=== PATIENT | female | born 1940 | race Caucasian/White ===

== ENCOUNTER → 2017-12-22 09:06 | Outpatient (CLI) | payer MEDICARE, SELFPAY ==
[2017-12-22 10:44] LABS: Hemoglobin A1C% w Est Avg Glu 5.6 % (4.0-6.0)
[2017-12-22 11:27] LABS: Alanine Aminotransferase 23 IU/L (9-52); Albumin 4.2 g/dL (3.5-5.0); Albumin Globulin Ratio 1.2 (1.0-2.8); Alkaline Phosphatase 85 U/L (38-126); Aspartate Aminotransferase 22 IU/L (14-36); BUN Creatinine Ratio 28.8 (6-22); Bilirubin Total 0.6 mg/dL (0.2-1.3); Blood Urea Nitrogen 23 mg/dL (7-17); Carbon Dioxide 30 mmol/L (22-32); Chloride 104 mmol/L (98-107); Cholesterol 197 mg/dL (140-199); Estimated Glomerular Filt Rate > 60.0 mL/min (>60); Globulin 3.4 g/dL (1.7-4.1); Glucose 131 mg/dL (80-110); HDL Cholesterol 38 mg/dL (40-60); HEMOLYSIS < 15 (0-50); LDL Cholesterol Calculated 119 mg/dL (<100); Potassium 4.6 mmol/L (3.4-5.1); Sodium 143 mmol/L (137-145); Total Protein 7.6 g/dL (6.3-8.2); Triglycerides 200 mg/dL (35-150)
== END ==
PROVIDERS: Visit Provider Internal Medicine
DX: M85.852 Other specified disorders of bone density and structure, left thigh (principal); Z78.0 Asymptomatic menopausal state; Z85.3 Personal history of malignant neoplasm of breast
CPT/HCPCS: 36415; 77080; 80053; 80061; 83036

== ENCOUNTER → 2017-12-31 09:12 | Outpatient (CLI) | payer MEDICARE, SELFPAY ==
[2017-12-31 12:30] LABS: Cholesterol 194 mg/dL (140-199); HDL Cholesterol 65 mg/dL (40-60); LDL Cholesterol Calculated 118 mg/dL (<100); Triglycerides 56 mg/dL (35-150)
== END ==
PROVIDERS: Visit Provider Internal Medicine
DX: E78.5 Hyperlipidemia, unspecified (principal)
CPT/HCPCS: 36415; 80061

== ENCOUNTER → 2018-02-16 08:45 | Outpatient (CLI) | payer MEDICARE, SELFPAY ==
[2018-02-16 09:45] LABS: Cholesterol 145 mg/dL (140-199); HDL Cholesterol 64 mg/dL (40-60); LDL Cholesterol Calculated 70 mg/dL (<100); Triglycerides 57 mg/dL (35-150)
== END ==
PROVIDERS: PCP Family Medicine; Visit Provider Internal Medicine
DX: E78.9 Disorder of lipoprotein metabolism, unspecified (principal)
CPT/HCPCS: 36415; 80061

== ENCOUNTER → 2018-03-04 11:28 | Outpatient (CLI) | payer MEDICARE, SELFPAY ==
[2018-03-09 15:30] LABS: Fecal Immunochemical Test NOT DETECTED
== END ==
PROVIDERS: PCP Family Medicine; Visit Provider Family Medicine
DX: Z12.11 Encounter for screening for malignant neoplasm of colon (principal)
CPT/HCPCS: 82274

== ENCOUNTER 2018-03-29 09:03 | Emergency (ER) | payer MEDICARE, SELFPAY ==
[2018-03-29 09:18] VITALS: BP 148/57; PULSE 76; RESP 15; TEMP 36.6; O2SAT 96; BMI 22.6
--- NOTE | 2018-03-29 09:26 | DI.RAD.S_ITS ---
PROCEDURE: XR CHEST 1V INDICATIONS: chest pain TECHNIQUE: One view of the chest was acquired. COMPARISON: None. FINDINGS: Surgical changes and devices: Right axillary surgical clips are present. Lungs and pleura: No pleural effusions or pneumothorax. Lungs are clear. Mediastinum: Mediastinal contours appear normal. Heart size is normal. Bones and chest wall: No suspicious bony lesions. Overlying soft tissues appear unremarkable. IMPRESSION: No acute process. Dictated by: Muna Alonso M.D. on 03/29/2018 at 9:38 Approved by: Muna Alonso M.D. on 03/29/2018 at 9:38
[2018-03-29 09:51] LABS: Add Manual Diff / Slide Review NO; Basophils Percent Auto 1.3 % (0-2); Eosinophils Percent Auto 4.8 % (2-4); Hematocrit 37.8 % (36-46); Hemoglobin 13.2 g/dL (12.0-16.0); Lymphocytes Percent Auto 17.4 % (25-40); Mean Corpuscular Hemoglobin 32.3 PG (26-34); Mean Corpuscular Volume 92.2 fL (80-100); Monocytes Percent Auto 8.3 % (3-14); Neutrophils Absolute Auto 4100 /uL (3000-5900); Neutrophils Percent Auto 68.2 % (50-75); Platelet Count 178 X10^3/uL (150-400); Red Cell Distribution Width 12.4 % (11.6-14.8)
[2018-03-29 10:00] VITALS: BP 123/47; PULSE 53; RESP 12; O2SAT 98
[2018-03-29 10:02] LABS: INR 1.1 (0.9-1.3); Prothrombin Time 11.4 SECONDS (10.1-12.7)
[2018-03-29 10:05] LABS: PTT Partial Thromboplastin Tim 25 SECONDS (26.4-36.2)
[2018-03-29 10:12] LABS: Alanine Aminotransferase 24 IU/L (9-52); Albumin Globulin Ratio 1.5 (1.0-2.8); Alkaline Phosphatase 42 U/L (38-126); Aspartate Aminotransferase 23 IU/L (14-36); BUN Creatinine Ratio 33.8 (6-22); Bilirubin Total 0.6 mg/dL (0.2-1.3); Blood Urea Nitrogen 27 mg/dL (7-17); Calcium 9.1 mg/dL (8.4-10.2); Carbon Dioxide 26 mmol/L (22-32); Chloride 105 mmol/L (98-107); Creatine Kinase 141 U/L (30-135); Estimated Glomerular Filt Rate > 60.0 mL/min (>60); Globulin 2.6 g/dL (1.7-4.1); Glucose 111 mg/dL (80-110); HEMOLYSIS < 15 (0-50); Lipase 64 U/L (23-300); Potassium 4.1 mmol/L (3.4-5.1); Sodium 142 mmol/L (137-145); Total Protein 6.6 g/dL (6.3-8.2)
--- NOTE | 2018-03-29 10:24 | ED_ITS ---
HPI - Syncope General Chief Complaint: Syncope Stated Complaint: cramp on rt inner thigh,high bp,passed out Time Seen by Provider: 03/29/18 09:26 Source: patient Mode of arrival: ambulatory Limitations: no limitations History of Present Illness HPI narrative: The patient is a 77-year-old very active female who presents after syncopal episode yesterday. She says that she went on a hike for about 5 miles yesterday around [facility] with the dog. They only brought water for the dog. She returned back to the house sitting in the recliner had some right leg pain Related Data Previous Rx's Medication Instructions Recorded mirtazapine 15 mg tablet 15 mg PO HS #90 tab 10/22/17 rosuvastatin 10 mg tablet 10 mg PO DAILY #60 tab 03/03/18 Allergies Allergy/AdvReac Type Severity Reaction Status Date / Time diphenoxylate [From Lomotil] AdvReac Mild VOMITING, Verified 03/29/18 09:23 FAINTING hydrocodone AdvReac Mild VOMITING Verified 03/29/18 09:23 meperidine AdvReac Mild VOMITING Verified 03/29/18 09:23 Review of Systems Review of Systems All systems reviewed & are unremarkable except as noted in HPI and below Constitutional Denies chills, Denies fever(s), Denies lethargy and Denies weakness Eyes Denies change in vision, Denies eye discharge, Denies irritation and Denies loss of vision Cardiovascular Reports as per HPI, Denies chest pain, Reports syncope, Denies dyspnea and Denies dyspnea on exertion Respiratory Denies cough, Denies dyspnea, Denies dyspnea on exertion and Denies wheezing Gastrointestinal Gastrointestinal: Denies abdominal pain, Denies change in bowel habits, Denies diarrhea, Denies nausea and Denies vomiting Genitourinary Denies hematuria, Denies flank pain, Denies urinary incontinence and Denies urinary urgency Musculoskeletal Denies back pain, Denies muscle weakness, Denies numbness and Denies tingling Integumentary/Breasts Denies pruritus, Denies erythema, Denies rash and Denies wounds Neurologic Reports syncope, Denies loss of vision, Denies numbness, Denies tingling and Denies weakness Allergic/Immunologic Denies wheezing [facility] Medical History Hyperlipidemia (Chronic) Asthma (Chronic) Compression fracture (Chronic) Hayfever (Chronic ~1989) Osteoarthritis of hands, bilateral (Chronic ~2011) Osteopenia (Chronic) Breast cancer, stage 1 (Resolved 1994) Cataract (Resolved) Chicken pox (Resolved ~1946) Fibrocystic breast disease (Resolved) Fibroids (Resolved 1970) Left tibial fracture (Resolved 1990) Measles (Resolved ~1947) Mumps (Resolved ~1948) Positive PPD (Resolved 1959) Surgical History Anesthesia (Resolved) History of cataract surgery (Resolved 2012) History of nasal polypectomy (Resolved) History of orthopedic surgery (Resolved 1990) History of sinus surgery (Resolved ~1969) S/P surgery on nasal septum (Resolved ~1969) Status post breast lumpectomy (Resolved 12/03/94) Status post vaginal hysterectomy (Resolved 1971) Family History Brother Age: 75 Diabetes mellitus Hypertension Father Heart disease High cholesterol Grandfather Cancer Lung cancer Grandmother Stroke Mother Cancer Lung cancer Grandmother Cancer Liver cancer Sister Age: 72 Hypertension Grandfather No problems noted. Other CAD (coronary artery disease) Social History Smoking Status: Never smoker Exam Initial Vital Signs Initial Vital Signs: Vital Signs Temperature 97.9 F 03/29/18 09:18 Pulse Rate 76 03/29/18 09:18 Respiratory Rate 15 03/29/18 09:18 Blood Pressure 148/57 H 03/29/18 09:18 Pulse Oximetry 96 03/29/18 09:18 GENERAL: Appears younger than stated age all alert cooperative HEENT: Head atraumatic,EOMI, pupils reactive, face symmetric, moist mucous membranes CARDIOVASCULAR: Regular rate and rhythm without murmurs, rubs or gallops. RESPIRATORY: Breath sounds equal bilaterally, no wheezes rales or rhonchi. ABDOMEN: Soft, nontender. Normoactive bowel sounds all 4 quadrants. No guarding or rebound.s EXTREMITIES: Normal range of motion, no clubbing or edema. Neurovascularly intact NEUROLOGICAL: Alert and oriented x4.Normal gait and speech. Cranial nerves II through XII grossly intact. Good [id number], good [id number], strength equal bilaterally, no dysarthria or aphasia, sensation in tact to soft touch bilaterally, no visual changes, no facial droop SKIN: Warm, dry, no laceration, no petechiae, no rashes or lesions. Scores NIH Stroke Scale Level of Conciousness: Alert, keenly responsive Ask month/age: Answers both questions correctly. Open/close eyes, close hand: Performs both tasks correctly Best gaze horizontal: Normal Visual jane: No visual loss Facial palsy: Normal symetrical movement Left arm drift: No drift for full 10 sec Right arm drift: No drift for full 10 sec Left leg drift: No drift for full 10 sec Right leg drift: No drift for full 10 sec Limb ataxia: Absent Sensory on face/arms/legs: Normal, no sensory loss Best language: No aphasia, normal Dysarthria: Normal Extinction or inattention: No abnormality Total NIH Stroke scale score: 0 Course Orders Ordered: ED Orders 03/29/18 09:26 XR chest 1V Stat EKG-12 Lead Stat 03/29/18 09:45 Complete Blood Count AUTO DIFF Stat Comprehensive Metabolic Panel Stat Lipase Stat Partial Thromboplastin Time Stat Prothrombin Time INR Stat Troponin & CK Cardiac Panel Stat Vital Signs - 8 hr 03/29/18 09:18 03/29/18 10:00 Temperature 97.9 F Pulse Rate 76 53 L Respiratory Rate 15 12 Blood Pressure 148/57 H Blood Pressure [Left Arm] 123/47 L Pulse Oximetry 96 98 MDM - Syncope Lab Data Attestation: I reviewed the patient's lab results. Result diagrams: 03/29/18 09:45 03/29/18 09:45 Lab Results 03/29/18 03/29/18 03/29/18 Range/Units 09:45 09:45 09:45 WBC 6.0 (4.5-11.0) X10^3/uL RBC 4.10 (4.0-5.2) X10^6/uL Hgb 13.2 (12.0-16.0) g/dL Hct 37.8 (36-46) % MCV 92.2 (80-100) fL MCH 32.3 (26-34) PG MCHC 35.0 (30-36) % RDW 12.4 (11.6-14.8) % Plt Count 178 (150-400) X10^3/uL Neut % (Auto) 68.2 (50-75) % Lymph % (Auto) 17.4 L (25-40) % [place] % (Auto) 8.3 (3-14) % Eos % (Auto) 4.8 H (2-4) % Baso % (Auto) 1.3 (0-2) % Neut # (Auto) 4100 (2309-6865) /uL PT 11.4 (10.1-12.7) SECONDS INR 1.1 (0.9-1.3) APTT 25 L (26.4-36.2) SECONDS Sodium 142 (137-145) mmol/L Potassium 4.1 (3.4-5.1) mmol/L Chloride 105 (98-107) mmol/L Carbon Dioxide 26 (22-32) mmol/L BUN 27 H (7-17) mg/dL Creatinine 0.80 (0.52-1.04) mg/dL Estimated GFR > 60.0 (>60) mL/min BUN/Creatinine Ratio 33.8 H (6-22) Glucose 111 H (80-110) mg/dL Calcium 9.1 (8.4-10.2) mg/dL Total Bilirubin 0.6 (0.2-1.3) mg/dL AST 23 (14-36) IU/L ALT 24 (9-52) IU/L Alkaline Phosphatase 42 (38-126) U/L Total Creatine Kinase 141 H (30-135) U/L CK-MB (CK-2) 1.86 (<2.37) ng/mL CK-MB (CK-2) Rel Index 1.3 L (1.5-5.0) % Troponin I < 0.012 (0.01-0.034) ng/mL Total Protein 6.6 (6.3-8.2) g/dL Albumin 4.0 (3.5-5.0) g/dL Globulin 2.6 (1.7-4.1) g/dL Albumin/Globulin Ratio 1.5 (1.0-2.8) Lipase 64 (23-300) U/L Urine RBC (0-5/HPF) Urine WBC (0-5/HPF) Ur Squamous Epith Cells Urine Bacteria (None) Ur Culture Indicated? Micro UA Comment 03/29/18 Range/Units Unknown WBC (4.5-11.0) X10^3/uL RBC (4.0-5.2) X10^6/uL Hgb (12.0-16.0) g/dL Hct (36-46) % MCV (80-100) fL MCH (26-34) PG MCHC (30-36) % RDW (11.6-14.8) % Plt Count (150-400) X10^3/uL Neut % (Auto) (50-75) % Lymph % (Auto) (25-40) % [place] % (Auto) (3-14) % Eos % (Auto) (2-4) % Baso % (Auto) (0-2) % Neut # (Auto) (6853-4660) /uL PT (10.1-12.7) SECONDS INR (0.9-1.3) APTT (26.4-36.2) SECONDS Sodium (137-145) mmol/L Potassium (3.4-5.1) mmol/L Chloride (98-107) mmol/L Carbon Dioxide (22-32) mmol/L BUN (7-17) mg/dL Creatinine (0.52-1.04) mg/dL Estimated GFR (>60) mL/min BUN/Creatinine Ratio (6-22) Glucose (80-110) mg/dL Calcium (8.4-10.2) mg/dL Total Bilirubin (0.2-1.3) mg/dL AST (14-36) IU/L ALT (9-52) IU/L Alkaline Phosphatase (38-126) U/L Total Creatine Kinase (30-135) U/L CK-MB (CK-2) (<2.37) ng/mL CK-MB (CK-2) Rel Index (1.5-5.0) % Troponin I (0.01-0.034) ng/mL Total Protein (6.3-8.2) g/dL Albumin (3.5-5.0) g/dL Globulin (1.7-4.1) g/dL Albumin/Globulin Ratio (1.0-2.8) Lipase (23-300) U/L Urine RBC None seen (0-5/HPF) Urine WBC None seen (0-5/HPF) Ur Squamous Epith Cells 5-10 /hpf H Urine Bacteria None seen (None) Ur Culture Indicated? Cult not indicated Micro UA Comment Not Reportable Urine Dip Bedside Urine Glucose Negative Bedside Urine Bilirubin - Negative Bedside Urine Ketone - Negative Urine Specific [place] 1.020 Bedside Urine Occult Blood +/- Bedside Urine pH 6.0 Bedside Urine Protein - Negative Bedside Urine Urobilinogen - Negative Bedside Urine Nitrite - Negative Bedside Urine Leukocytes - Negative Esterase Imaging Data Chest x-ray: Radiologist's impression: PROCEDURE: XR CHEST 1V INDICATIONS: chest pain TECHNIQUE: One view of the chest was acquired. COMPARISON: None. FINDINGS: Surgical changes and devices: Right axillary surgical clips are present. Lungs and pleura: No pleural effusions or pneumothorax. Lungs are clear. Mediastinum: Mediastinal contours appear normal. Heart size is normal. Bones and chest wall: No suspicious bony lesions. Overlying soft tissues appear unremarkable. IMPRESSION: No acute process. Dictated by: Muna Alonso M.D. on 03/29/2018 at 9:38 ECG Data Attestation: I personally reviewed and interpreted this ECG as follows: Prior ECG tracings: not available for review Interpretation: Normal sinus rhythm rate [address] changes no T-wave inversions, 1st degree AV block NV interval 216 QRS 97 QTC 391 MDM Narrative Medical decision making narrative: Patient overall is feeling better she is tolerating oral fluids. She has not had a recurrent syncopal episode pleural this is likely vasovagal Discharge Plan Departure Patient Disposition: Home Clinical Impression: Syncope Discharge Date/Time: 03/29/18 11:30 Interventions: ED Discharge Assessment Last Done: 03/29/18 11:29 Instructions: Fainting Activity Restrictions/Additional Instructions: *You have been diagnosed with fainting *What to do: Hydrate more with water avoid caffeinated drinks such as coffee *Continue to take medications as directed *Follow up with your primary care provider in 2-3 days *Return to ER if you should have recurrent fainting episode, chest pain, weakness or any new, worsening or concerning symptoms Prescriptions: No Action mirtazapine [Remeron] 15 mg tablet 15 mg PO HS Qty: 90 RF: 3 rosuvastatin 10 mg tablet 10 mg PO DAILY Qty: 60 RF: 3 Referrals: Veda Amaral MD [Primary Care Provider] -
[2018-03-29 10:28] LABS: CKMB % Relative Index 1.3 % (1.5-5.0); Creatine Kinase MB 1.86 ng/mL (<2.37)
[2018-03-29 10:31] LABS: Troponin I < 0.012 ng/mL (0.01-0.034)
[2018-03-29 11:00] VITALS: BP 128/75; PULSE 60; RESP 12; O2SAT 98
[2018-03-29 11:30] LABS: Bacteria Urine None Seen; RBC Urine None Seen (0-5/HPF); WBC Urine None Seen (0-5/HPF)
[2018-03-29 11:31] LABS: Culture Indicated Urine Cult Not Indicated; Squamous Epithelial Cell Urine 5-10 /HPF
== END 2018-03-29 11:30 | disposition home or self-care (01) ==
PROVIDERS: Emergency Provider Emergency Medicine; PCP Family Medicine
DX: R55 Syncope and collapse (principal)
CPT/HCPCS: 36591; 71045; 80053; 81003; 81015; 82550; 82553; 83690; 84484; 85025; 85610; 85730; 93005; 99283; 99285

== ENCOUNTER → 2018-07-14 09:12 | Outpatient (CLI) | payer MEDICARE, SELFPAY ==
[2018-07-14 10:26] LABS: Cholesterol 196 mg/dL (140-199); HDL Cholesterol 63 mg/dL (40-60); LDL Cholesterol Calculated 121 mg/dL (<100); Triglycerides 62 mg/dL (35-150)
== END ==
PROVIDERS: PCP Family Medicine; Visit Provider Family Medicine
DX: E78.5 Hyperlipidemia, unspecified (principal)
CPT/HCPCS: 36415; 80061

== ENCOUNTER → 2018-08-16 10:50 | Outpatient (CLI) | payer MEDICARE, SELFPAY ==
--- NOTE | 2018-08-16 | DI.MG.S_ITS ---
BILATERAL DIGITAL SCREENING MAMMOGRAM 3D/2D WITH CAD: 08/16/2018 CLINICAL: Routine screening. Personal history of right breast cancer. Comparison is made to exams dated: 08/14/2017 mammogram, 08/13/2016 mammogram, and 08/03/2015 mammogram - [facility]. The tissue of both breasts is heterogeneously dense. This may lower the sensitivity of mammography. Current study was also evaluated with a Computer Aided Detection (CAD) system. There are benign post operative findings in the right breast. No significant masses, calcifications, or other findings are seen in either breast. There has been no significant interval change. IMPRESSION: There is no mammographic evidence of malignancy. A 1 year screening mammogram is recommended. This exam was interpreted at Station ID: [id number]. NOTE: For mammograms, a report in lay terms will be sent to the patient. Approximately 15% of breast malignancies will not be visualized mammographically. In the management of a palpable breast mass, a negative mammogram must not discourage biopsy of a clinically suspicious lesion. Electronically Signed By: Marty macedo/fabian:08/16/2018 12:25:40 copy to: GIACOMO CANO letter sent: Normal Exam ACR BI-RADS Category 2: Benign Finding(s) 3342F
== END ==
PROVIDERS: PCP Family Medicine; Visit Provider Family Medicine
DX: Z12.31 Encounter for screening mammogram for malignant neoplasm of breast (principal); Z85.3 Personal history of malignant neoplasm of breast
CPT/HCPCS: 77063; 77067

== ENCOUNTER → 2019-06-20 10:19 | Outpatient (CLI) | payer MEDICARE, SELFPAY ==
[2019-06-20 12:20] LABS: Hematocrit 41.6 % (36-46); Hemoglobin 14.2 g/dL (12.0-16.0); Mean Corpuscular HGB Conc 34.2 % (30-36); Mean Corpuscular Hemoglobin 31.7 PG (26-34); Mean Corpuscular Volume 92.6 fL (80-100); Platelet Count 186 X10^3/uL (150-400); Red Blood Cell Count 4.49 X10^6/uL (4.0-5.2); Red Cell Distribution Width 12.7 % (11.6-14.8)
[2019-06-20 13:23] LABS: TSH w/ Reflex to FT4 3.26 uIU/mL (0.47-4.68)
== END ==
PROVIDERS: PCP Family Medicine; Referring Provider Registered Nurse; Visit Provider Registered Nurse
DX: R53.83 Other fatigue (principal)
CPT/HCPCS: 36415; 84443; 85027

== ENCOUNTER → 2019-08-29 15:46 | Outpatient (CLI) | payer MEDICARE, SELFPAY ==
[2019-08-29 17:42] LABS: C-Reactive Protein Quant 6.8 mg/dL (<1.0)
[2019-08-29 17:43] LABS: Rheumatoid Factor < 8.6 IU/mL (<12.0)
[2019-08-29 18:26] LABS: Erythrocyte Sedimentation Rate 33 MM/HR (0-20)
[2019-08-31 23:47] LABS: CCP Antibodies IgG/IgA 8 units (0-19)
== END ==
PROVIDERS: PCP Family Medicine; Referring Provider Family Medicine; Visit Provider Family Medicine
DX: M79.10 Myalgia, unspecified site (principal); R21 Rash and other nonspecific skin eruption; R50.9 Fever, unspecified
CPT/HCPCS: 36415; 85651; 86140; 86200; 86430

== ENCOUNTER → 2019-09-09 16:25 | Outpatient (CLI) | payer MEDICARE, SELFPAY ==
[2019-09-09 17:37] LABS: Erythrocyte Sedimentation Rate 8 MM/HR (0-20)
[2019-09-09 18:13] LABS: C-Reactive Protein Quant < 0.5 mg/dL (<1.0)
== END ==
PROVIDERS: PCP Family Medicine; Referring Provider Family Medicine; Visit Provider Family Medicine
DX: Z51.81 Encounter for therapeutic drug level monitoring (principal); M25.50 Pain in unspecified joint; T38.0X5A Adverse effect of glucocorticoids and synthetic analogues, initial encounter
CPT/HCPCS: 36415; 85651; 86140

== ENCOUNTER → 2019-10-15 10:05 | Outpatient (CLI) | payer MEDICARE, SELFPAY ==
--- NOTE | 2019-10-15 10:06 | DI.MG.S_ITS ---
BILATERAL DIGITAL SCREENING MAMMOGRAM 3D/2D WITH CAD POST LUMPECTOMY: 10/15/2019 CLINICAL: Routine screening. Personal history of right breast cancer. Comparison is made to exams dated: 08/16/2018 mammogram, 08/14/2017 mammogram, and 08/13/2016 mammogram - [facility]. The tissue of both breasts is heterogeneously dense. This may lower the sensitivity of mammography. Current study was also evaluated with a Computer Aided Detection (CAD) system. There are benign post operative findings in the right breast. No significant masses, calcifications, or other findings are seen in either breast. There has been no significant interval change. IMPRESSION: There is no mammographic evidence of malignancy. A 1 year screening mammogram is recommended. This exam was interpreted at Station ID: [id number]. NOTE: For mammograms, a report in lay terms will be sent to the patient. Approximately 15% of breast malignancies will not be visualized mammographically. In the management of a palpable breast mass, a negative mammogram must not discourage biopsy of a clinically suspicious lesion. Electronically Signed By: Marty macedo/fabian:10/17/2019 08:42:36 letter sent: Normal Exam ACR BI-RADS Category 2: Benign Finding(s) 3342F
== END ==
PROVIDERS: PCP Family Medicine; Referring Provider Family Medicine; Visit Provider Family Medicine
DX: Z12.31 Encounter for screening mammogram for malignant neoplasm of breast (principal); Z85.3 Personal history of malignant neoplasm of breast
CPT/HCPCS: 77063; 77067

== ENCOUNTER → 2020-01-17 08:31 | Outpatient (CLI) | payer MEDICARE, SELFPAY | PROVIDERS: PCP Family Medicine; Visit Provider Physician Assistant | DX: R30.0 Dysuria (principal) | CPT/HCPCS: 87077; 87086; 87186 ==

== ENCOUNTER → 2020-10-22 10:45 | Outpatient (CLI) | payer MEDICARE, SELFPAY ==
--- NOTE | 2020-10-22 10:46 | DI.MG.S_ITS ---
BILATERAL DIGITAL SCREENING MAMMOGRAM 3D/2D WITH CAD: 10/22/2020 CLINICAL: Routine screening. Breast cancer. Comparison is made to exams dated: 10/15/2019 mammogram, 08/16/2018 mammogram, and 08/14/2017 mammogram - [facility]. The tissue of both breasts is heterogeneously dense. This may lower the sensitivity of mammography. Current study was also evaluated with a Computer Aided Detection (CAD) system. There are benign post operative findings in the right breast. No significant masses, calcifications, or other findings are seen in either breast. There has been no significant interval change. IMPRESSION: BENIGN There is no mammographic evidence of malignancy. A 1 year screening mammogram is recommended. This exam was interpreted at Station ID: [id number]. NOTE: For mammograms, a report in lay terms will be sent to the patient. Approximately 15% of breast malignancies will not be visualized mammographically. In the management of a palpable breast mass, a negative mammogram must not discourage biopsy of a clinically suspicious lesion. Electronically Signed By: Fred musa/fabian:10/22/2020 13:09:36 letter sent: Normal Exam ACR BI-RADS Category 2: Benign Finding(s) 3342F
== END ==
PROVIDERS: PCP Family Medicine; Referring Provider Internal Medicine Hematology & Oncology; Visit Provider Internal Medicine Hematology & Oncology
DX: Z12.31 Encounter for screening mammogram for malignant neoplasm of breast (principal); C50.919 Malignant neoplasm of unspecified site of unspecified female breast
CPT/HCPCS: 77063; 77067

== ENCOUNTER → 2020-11-07 09:43 | Outpatient (CLI) | payer MEDICARE, SELFPAY ==
[2020-11-07 10:44] LABS: Hemoglobin A1C% w Est Avg Glu 5.4 % (4.0-6.0)
[2020-11-07 11:12] LABS: Cholesterol 208 mg/dL (140-199); HDL Cholesterol 60 mg/dL (40-60); LDL Cholesterol Calculated 137 mg/dL (<100); Triglycerides 53 mg/dL (35-150)
[2020-11-07 12:03] LABS: Vitamin B12 215 pg/mL (239-931)
== END ==
PROVIDERS: PCP Family Medicine; Referring Provider Family Medicine; Visit Provider Family Medicine
DX: G62.9 Polyneuropathy, unspecified (principal); Z13.220 Encounter for screening for lipoid disorders
CPT/HCPCS: 36415; 80061; 82607; 83036

== ENCOUNTER → 2021-09-19 09:30 | Outpatient (CLI) | payer MEDICARE, SELFPAY ==
[2021-09-19 11:28] LABS: Alanine Aminotransferase 14 IU/L (<35); Albumin 4.1 g/dL (3.5-5.0); Albumin Globulin Ratio 1.4 (1.0-2.8); Alkaline Phosphatase 42 U/L (38-126); Aspartate Aminotransferase 25 IU/L (14-36); Bilirubin Total 0.5 mg/dL (0.2-1.3); Blood Urea Nitrogen 24 mg/dL (7-17); Calcium 9.1 mg/dL (8.4-10.2); Carbon Dioxide 30 mmol/L (22-32); Chloride 103 mmol/L (98-107); Cholesterol 202 mg/dL (140-199); Estimated Glomerular Filt Rate 59 mL/min (>60); Globulin 2.9 g/dL (1.7-4.1); Glucose 96 mg/dL (80-110); HDL Cholesterol 61 mg/dL (40-60); HEMOLYSIS < 15 (0-50); LDL Cholesterol Calculated 129 mg/dL (<100); Potassium 4.3 mmol/L (3.4-5.1); Sodium 138 mmol/L (137-145); Triglycerides 62 mg/dL (35-150)
[2021-09-19 18:15] LABS: Creatinine Urine Random 192.2 mg/dL
[2021-09-19 18:19] LABS: Microalbumi Creatinin Ratio Ur 19.7 ug/mg CR (<30); Microalbumin Urine Random 3.8 mg/dL (0-1.6)
== END ==
PROVIDERS: PCP Family Medicine; Referring Provider Family Medicine; Visit Provider Family Medicine
DX: I10 Essential (primary) hypertension (principal)
CPT/HCPCS: 36415; 80053; 80061; 82043; 82570

== ENCOUNTER → 2021-10-28 14:35 | Outpatient (CLI) | payer MEDICARE, SELFPAY ==
--- NOTE | 2021-10-28 14:37 | DI.MG.S_ITS ---
BILATERAL DIGITAL SCREENING MAMMOGRAM 3D/2D WITH CAD: 10/28/2021 CLINICAL: Routine screening. Personal history of right breast cancer. Comparison is made to exams dated: 10/22/2020 mammogram, 10/15/2019 mammogram, and 08/16/2018 mammogram - [facility]. The tissue of both breasts is heterogeneously dense. This may lower the sensitivity of mammography. Current study was also evaluated with a Computer Aided Detection (CAD) system. There are benign post operative findings in the right breast. No significant masses, calcifications, or other findings are seen in either breast. There has been no significant interval change. IMPRESSION: BENIGN There is no mammographic evidence of malignancy. A 1 year screening mammogram is recommended. This exam was interpreted at Station ID: [id number]. NOTE: For mammograms, a report in lay terms will be sent to the patient. Approximately 15% of breast malignancies will not be visualized mammographically. In the management of a palpable breast mass, a negative mammogram must not discourage biopsy of a clinically suspicious lesion. Electronically Signed By: Jim Marin acr/penrad:10/28/2021 16:17:04 copy to: Veda Amaral M.D., [facility] [employer], ph: [phone], fax: [phone] letter sent: Normal Exam ACR BI-RADS Category 2: Benign Finding(s) 0355H
== END ==
PROVIDERS: PCP Family Medicine; Referring Provider Internal Medicine Hematology & Oncology; Visit Provider Internal Medicine Hematology & Oncology
DX: Z12.31 Encounter for screening mammogram for malignant neoplasm of breast (principal); Z85.3 Personal history of malignant neoplasm of breast
CPT/HCPCS: 77063; 77067

== ENCOUNTER → 2021-11-29 16:31 | Outpatient (CLI) | payer MEDICARE, SELFPAY | PROVIDERS: PCP Family Medicine; Visit Provider Obstetrics & Gynecology | DX: R35.0 Frequency of micturition (principal) | CPT/HCPCS: 87086 ==

== ENCOUNTER → 2022-12-11 08:10 | Outpatient (CLI) | payer MEDICARE, SELFPAY ==
[2022-12-11 08:29] LABS: Add Manual Diff / Slide Review NO; Basophils Absolute Auto 100 /uL (0-100); Eosinophils Absolute Auto 500 /uL (0-450); Eosinophils Percent Auto 9.8 % (2-4); Hematocrit 39.4 % (36-46); Hemoglobin 13.5 g/dL (12.0-16.0); Lymphocytes Absolute Auto 1200 /uL (1100-4500); Lymphocytes Percent Auto 25.8 % (25-40); Mean Corpuscular HGB Conc 34.3 % (30-36); Mean Corpuscular Hemoglobin 31.8 PG (26-34); Mean Corpuscular Volume 92.8 fL (80-100); Monocytes Absolute Auto 500 /uL (0-900); Neutrophils Absolute Auto 2500 /uL (1500-7000); Neutrophils Percent Auto 52.4 % (50-75); Platelet Count 176 X10^3/uL (150-400); Red Blood Cell Count 4.24 X10^6/uL (4.0-5.2); Red Cell Distribution Width 12.6 % (11.6-14.8); White Blood Cell Count 4.8 X10^3/uL (4.5-11.0)
[2022-12-11 08:44] LABS: Cholesterol 197 mg/dL (140-199); HDL Cholesterol 75 mg/dL (40-60); LDL Cholesterol Calculated 111 mg/dL (<100); Triglycerides 54 mg/dL (35-150)
[2022-12-11 08:44] LABS: Alanine Aminotransferase 20 IU/L (<35); Albumin Globulin Ratio 1.5 (1.0-2.8); Alkaline Phosphatase 43 U/L (38-126); Aspartate Aminotransferase 27 IU/L (14-36); BUN Creatinine Ratio 29.7 (6-22); Bilirubin Total 0.4 mg/dL (0.2-1.3); Blood Urea Nitrogen 22 mg/dL (7-17); Carbon Dioxide 30 mmol/L (22-32); Chloride 102 mmol/L (98-107); Estimated Glomerular Filt Rate > 60 mL/min (>60); Globulin 2.7 g/dL (1.7-4.1); Glucose 100 mg/dL (80-110); HEMOLYSIS < 15 (0-50); Potassium 4.1 mmol/L (3.4-5.1); Sodium 138 mmol/L (137-145); Total Protein 6.7 g/dL (6.3-8.2)
[2022-12-11 10:21] LABS: Vitamin B12 959 pg/mL (239-931)
--- NOTE | 2022-12-11 14:35 | DI.MG.S_ITS ---
BILATERAL DIGITAL SCREENING MAMMOGRAM 3D/2D WITH CAD: 12/11/2022 CLINICAL: Routine screening. Personal history of right breast cancer. Comparison is made to exams dated: 10/28/2021 mammogram, 10/22/2020 mammogram, and 10/15/2019 mammogram - [facility]. Both breasts are heterogeneously dense, which may obscure small masses (category c / 51-75% glandular tissue). Current study was also evaluated with a Computer Aided Detection (CAD) system. There are benign post operative findings in the right breast. No significant masses, calcifications, or other findings are seen in either breast. There has been no significant interval change. IMPRESSION: BENIGN There is no mammographic evidence of malignancy. A 1 year screening mammogram is recommended. This exam was interpreted at Station ID: [id number]. NOTE: For mammograms, a report in lay terms will be sent to the patient. Approximately 15% of breast malignancies will not be visualized mammographically. In the management of a palpable breast mass, a negative mammogram must not discourage biopsy of a clinically suspicious lesion. Electronically Signed By: Marty Alvarez M.D. at/fabian:12/12/2022 07:32:32 copy to: Veda Amaral M.D., [facility] [employer], ph: [phone], fax: [phone] letter sent: Normal Exam ACR BI-RADS Category 2: Benign Finding(s) 3342
== END ==
PROVIDERS: PCP Family Medicine; Referring Provider Internal Medicine Hematology & Oncology; Visit Provider Internal Medicine Hematology & Oncology
DX: E78.5 Hyperlipidemia, unspecified (principal); C50.919 Malignant neoplasm of unspecified site of unspecified female breast; Z12.31 Encounter for screening mammogram for malignant neoplasm of breast; E53.8 Deficiency of other specified B group vitamins
CPT/HCPCS: 36415; 77063; 77067; 80053; 80061; 82607; 85025

== ENCOUNTER → 2023-02-17 09:35 | Outpatient (CLI) | payer MEDICARE, SELFPAY ==
[2023-02-17 10:38] LABS: Occult Blood 1 NEGATIVE (Negative); Occult Blood 2 NEGATIVE (Negative); Occult Blood 3 NEGATIVE (Negative)
[2023-02-17 11:35] LABS: Adenovirus F 40/41 Not Detected (Not Detect); Astrovirus Not Detected (Not Detect); Campylobacter Not Detected (Not Detect); Clostridium difficile toxin AB Not Detected (Not Detect); Cryptosporidium Not Detected (Not Detect); Cyclospora cayetanensis Not Detected (Not Detect); Entamoeba histolytica Detected (Not Detect); Enteroaggregative E.coli Not Detected (Not Detect); Enteropathogenic E.coli Not Detected (Not Detect); Enterotoxigenic E.coli It/st Not Detected (Not Detect); Giardia lamblia Not Detected (Not Detect); Norovirus GI/GII Not Detected (Not Detect); Plesiomonsa shigelloides Not Detected (Not Detect); Rotavirus A Not Detected (Not Detect); Salmonella Not Detected (Not Detect); Sapovirus Not Detected (Not Detect); Shiga-like toxin-prod E.coli Not Detected (Not Detect); Shigella/Enteroinvasive E.coli Not Detected (Not Detect); Vibrio Not Detected (Not Detect); Vibrio cholerae Not Detected (Not Detect); Yersinia enterocolitica Not Detected (Not Detect)
== END ==
PROVIDERS: PCP Family Medicine; Referring Provider Family Medicine; Visit Provider Family Medicine
DX: R19.7 Diarrhea, unspecified (principal)
CPT/HCPCS: 82270; 87507

== ENCOUNTER → 2023-07-22 08:39 | Outpatient (CLI) | payer MEDICARE, SELFPAY ==
[2023-07-22 10:22] LABS: Alanine Aminotransferase 25 IU/L (<35); Albumin 3.9 g/dL (3.5-5.0); Albumin Globulin Ratio 1.4 (1.0-2.8); Alkaline Phosphatase 45 U/L (38-126); Aspartate Aminotransferase 29 IU/L (14-36); BUN Creatinine Ratio 29.1 (6-22); Bilirubin Total 0.5 mg/dL (0.2-1.3); Blood Urea Nitrogen 23 mg/dL (7-17); Calcium 9.2 mg/dL (8.4-10.2); Carbon Dioxide 29 mmol/L (22-32); Chloride 105 mmol/L (98-107); Cholesterol 204 mg/dL (140-199); Estimated Glomerular Filt Rate > 60 mL/min (>60); Globulin 2.8 g/dL (1.7-4.1); Glucose 95 mg/dL (80-110); HDL Cholesterol 68 mg/dL (40-60); HEMOLYSIS < 15 (0-50); LDL Cholesterol Calculated 122 mg/dL (<100); Sodium 138 mmol/L (137-145); Total Protein 6.7 g/dL (6.3-8.2); Triglycerides 68 mg/dL (35-150)
[2023-07-22 10:26] LABS: Potassium 4.4 mmol/L (3.4-5.1)
[2023-07-22 10:36] LABS: Creatinine Urine Random 79.1 mg/dL
[2023-07-22 10:40] LABS: Microalbumi Creatinin Ratio Ur 46.7 ug/mg CR (<30); Microalbumin Urine Random 3.7 mg/dL (0-1.6)
== END ==
PROVIDERS: PCP Family Medicine; Referring Provider Family Medicine; Visit Provider Family Medicine
DX: E78.5 Hyperlipidemia, unspecified (principal); I10 Essential (primary) hypertension; K21.9 Gastro-esophageal reflux disease without esophagitis; J45.20 Mild intermittent asthma, uncomplicated
CPT/HCPCS: 36415; 80053; 80061; 82043; 82570

== ENCOUNTER → 2023-07-30 10:10 | Outpatient (CLI) | payer MEDICARE, SELFPAY ==
[2023-07-30 12:05] LABS: HEMOLYSIS < 15 (0-50)
[2023-07-30 12:12] LABS: Alanine Aminotransferase 25 IU/L (<35); Albumin Globulin Ratio 1.5 (1.0-2.8); Alkaline Phosphatase 48 U/L (38-126); Aspartate Aminotransferase 31 IU/L (14-36); BUN Creatinine Ratio 39.2 (6-22); Bilirubin Total 0.5 mg/dL (0.2-1.3); Blood Urea Nitrogen 29 mg/dL (7-17); Calcium 9.4 mg/dL (8.4-10.2); Carbon Dioxide 32 mmol/L (22-32); Chloride 105 mmol/L (98-107); Estimated Glomerular Filt Rate > 60 mL/min (>60); Globulin 2.7 g/dL (1.7-4.1); Glucose 85 mg/dL (80-110); Potassium 4.6 mmol/L (3.4-5.1); Sodium 138 mmol/L (137-145); Total Protein 6.7 g/dL (6.3-8.2)
[2023-07-30 15:02] LABS: Creatinine Urine Random 97.5 mg/dL
[2023-07-30 15:06] LABS: Microalbumi Creatinin Ratio Ur 26.6 ug/mg CR (<30); Microalbumin Urine Random 2.6 mg/dL (0-1.6)
[2023-07-31 01:59] LABS: Vitamin B12 810 pg/mL (239-931)
== END ==
PROVIDERS: PCP Family Medicine; Referring Provider Family Medicine; Visit Provider Family Medicine
DX: I10 Essential (primary) hypertension (principal); E53.8 Deficiency of other specified B group vitamins
CPT/HCPCS: 36415; 80053; 82043; 82570; 82607

== ENCOUNTER → 2023-08-06 15:00 | Outpatient (CLI) | payer MEDICARE, SELFPAY ==
--- NOTE | 2023-08-06 15:02 | DI.RAD.S_ITS ---
Bone Density Report Name: SLICK ORTEGA Age: 83 Sex: Female Ethnicity: White Date of : 1940 Indication: osteopenia; Referring Provider: TALHA SANTOS Study: Bone densitometry was performed. Exam Date: August 06, 2023 Accession number: [id number] Bone Density: Region BMD T-score Z-score Classification AP Spine(L1, L2, L3) 0.930 -0.8 2.0 Normal Femoral Neck (Left) 0.622 -2.0 0.5 Osteopenia Total Hip (Left) 0.703 -2.0 0.4 Osteopenia Femoral Neck (Right) 0.618 -2.1 0.4 Osteopenia Total Hip (Right) 0.722 -1.8 0.5 Osteopenia Total Hip Mean 0.712 -1.9 0.5 Osteopenia World Health Organization criteria for BMD impression classify patients as: Normal (T-score at or above -1.0), Osteopenia (T-score between -1.0 and -2.5), or Osteoporosis (T-score at or below -2.5). 10-year Fracture Risk(1): Major Osteoporotic Fracture 16% Hip Fracture 4.9% Reported Risk Factors: [place] (), Neck BMD=0.622, BMI=23.6 (1) FRAX(R) Version 3.08. Fracture probability calculated for an untreated patient. Fracture probability may be lower if the patient has received treatment. Previous Exams: -- Region Exam Age BMD T-score BMD Change BMD Change Date g/cm2 vs Baseline vs Previous -- AP Spine (L1-L3) 08/06/2023 83 0.930 -0.8 0.010 (1.1%)# -0.083 (-8.2%)# 12/22/2017 77 1.013 0.0 0.093 (10.1%)* 0.082 (8.8%)* 12/14/2012 72 0.931 -0.8 0.011 (1.2%) -0.019 (-2.0%) 04/16/2010 69 0.950 -0.6 0.030 (3.2%)* 0.038 (4.2%)* 04/09/2009 68 0.911 -1.0 -0.009 (-0.9%) -0.009 (-0.9%) 01/24/2008 67 0.920 -0.9 Total Hip(Left) 08/06/2023 83 0.703 -2.0 -0.051 (-6.8%)# -0.057 (-7.5%)# 12/22/2017 77 0.760 -1.5 0.006 (0.8%) 0.019 (2.6%) 12/14/2012 72 0.740 -1.7 -0.013 (-1.7%) -0.069 (-8.6%)* 04/16/2010 69 0.810 -1.1 0.056 (7.5%)* 0.062 (8.3%)* 04/09/2009 68 0.748 -1.6 -0.006 (-0.7%) -0.006 (-0.7%) 01/24/2008 67 0.753 -1.5 Total Hip(Right) 08/06/2023 83 0.722 -1.8 -0.018 (-2.4%)# 0.003 (0.4%)# 12/22/2017 77 0.719 -1.8 -0.020 (-2.8%) -0.005 (-0.7%) 12/14/2012 72 0.724 -1.8 -0.015 (-2.1%) -0.030 (-3.9%)* 04/16/2010 69 0.754 -1.5 0.014 (1.9%) 0.048 (6.8%)* 04/09/2009 68 0.706 -1.9 -0.034 (-4.5%)* -0.034 (-4.5%)* 01/24/2008 67 0.740 -1.7 -- *Denotes significance at 95% confidence level, LSC for AP Spine = 0.022 g/cm2, LSC for Total Hip = 0.027 g/cm2 Rate of change results reflect vertebral levels common to all scans # Denotes dissimilar scan types or analysis methods Impression: The patient has low bone mass, based on the Right Femoral Neck T-score. The patient has an estimated ten-year risk of hip fracture of 4.9% and an estimated ten-year risk of major fracture of 16%, based on the WHO FRAX algorithm. No significant bone loss was observed. Discussion: BONE DENSITY IS LOW AT ONE OR MORE SKELETAL SITES. THE PATIENT'S BMD AND CLINICAL RISK FACTORS CONTRIBUTE TO THIS PATIENT'S INCREASED RISK OF FRACTURE. This patient's lowest T-score is low at one or more skeletal sites. It meets the World Health Organization's (WHO) criteria for low bone mass (T-score between -1.0 and -2.5). The patient's 10-year risk of hip fracture as calculated by FRAX exceeds the threshold where pharmacological therapy is recommended by the National Osteoporosis Foundation (NOF). However, all treatment decisions require clinical judgment and consideration of individual patient factors, including patient preferences, comorbidities, previous drug use, risk factors not captured in the FRAX model (e.g., frailty, falls, vitamin D deficiency, increased bone turnover, interval significant decline in bone density) and possible under or overestimation of fracture risk by FRAX. The patient should follow a healthful lifestyle (good nutrition with adequate calcium and vitamin D, and appropriate weight-bearing exercise). Follow-Up: Consider a repeat BMD and Vertebral Fracture Assessment (VFA) exam in 2 years or sooner if medically necessary, to reassess this patient's status. Reported by: EVERARDO MÉNDEZ M.D. on 08/06/2023 3:46:00 PM.
== END ==
PROVIDERS: PCP Family Medicine; Referring Provider Family Medicine; Visit Provider Family Medicine
DX: Z78.0 Asymptomatic menopausal state (principal); M85.851 Other specified disorders of bone density and structure, right thigh
CPT/HCPCS: 77080

== ENCOUNTER → 2023-12-02 11:14 | Outpatient (CLI) | payer MEDICARE, SELFPAY ==
[2023-12-02 11:52] LABS: Add Manual Diff / Slide Review NO; Basophils Absolute Auto 100 /uL (0-100); Basophils Percent Auto 1.9 % (0-2); Eosinophils Absolute Auto 400 /uL (0-450); Eosinophils Percent Auto 8.9 % (2-4); Hematocrit 39.8 % (36-46); Hemoglobin 13.7 g/dL (12.0-16.0); Lymphocytes Absolute Auto 1200 /uL (1100-4500); Mean Corpuscular HGB Conc 34.4 % (30-36); Mean Corpuscular Hemoglobin 32.1 PG (26-34); Mean Corpuscular Volume 93.2 fL (80-100); Monocytes Absolute Auto 500 /uL (0-900); Monocytes Percent Auto 9.4 % (3-14); Neutrophils Absolute Auto 2800 /uL (1500-7000); Neutrophils Percent Auto 55.8 % (50-75); Platelet Count 190 X10^3/uL (150-400); Red Blood Cell Count 4.27 X10^6/uL (4.0-5.2); Red Cell Distribution Width 12.3 % (11.6-14.8)
[2023-12-02 12:06] LABS: BUN Creatinine Ratio 23.3 (6-22); Blood Urea Nitrogen 21 mg/dL (7-17); Calcium 8.9 mg/dL (8.4-10.2); Carbon Dioxide 27 mmol/L (22-32); Chloride 105 mmol/L (98-107); Estimated Glomerular Filt Rate > 60 mL/min (>60); Glucose 86 mg/dL (80-110); HEMOLYSIS < 15 (0-50); Potassium 4.6 mmol/L (3.4-5.1); Sodium 139 mmol/L (137-145)
== END ==
PROVIDERS: PCP Family Medicine; Referring Provider Family Medicine; Visit Provider Family Medicine
DX: Z01.818 Encounter for other preprocedural examination (principal)
CPT/HCPCS: 36415; 80048; 85025

== ENCOUNTER → 2023-12-10 08:28 | Outpatient (CLI) | payer MEDICARE, SELFPAY ==
[2023-12-10 09:50] LABS: Add Manual Diff / Slide Review NO; Basophils Absolute Auto 100 /uL (0-100); Basophils Percent Auto 1.9 % (0-2); Eosinophils Absolute Auto 500 /uL (0-450); Eosinophils Percent Auto 10.2 % (2-4); Hematocrit 39.9 % (36-46); Hemoglobin 13.8 g/dL (12.0-16.0); Lymphocytes Absolute Auto 1400 /uL (1100-4500); Lymphocytes Percent Auto 30.3 % (25-40); Mean Corpuscular HGB Conc 34.5 % (30-36); Mean Corpuscular Hemoglobin 31.8 PG (26-34); Mean Corpuscular Volume 92.2 fL (80-100); Monocytes Absolute Auto 500 /uL (0-900); Monocytes Percent Auto 10.4 % (3-14); Neutrophils Absolute Auto 2200 /uL (1500-7000); Neutrophils Percent Auto 47.2 % (50-75); Platelet Count 177 X10^3/uL (150-400); Red Blood Cell Count 4.33 X10^6/uL (4.0-5.2); Red Cell Distribution Width 12.5 % (11.6-14.8); White Blood Cell Count 4.6 X10^3/uL (4.5-11.0)
[2023-12-10 10:06] LABS: Alanine Aminotransferase 19 IU/L (<35); Albumin 3.9 g/dL (3.5-5.0); Albumin Globulin Ratio 1.5 (1.0-2.8); Alkaline Phosphatase 46 U/L (38-126); Aspartate Aminotransferase 27 IU/L (14-36); BUN Creatinine Ratio 27.1 (6-22); Bilirubin Total 0.6 mg/dL (0.2-1.3); Blood Urea Nitrogen 23 mg/dL (7-17); Calcium 9.3 mg/dL (8.4-10.2); Carbon Dioxide 28 mmol/L (22-32); Chloride 105 mmol/L (98-107); Estimated Glomerular Filt Rate > 60 mL/min (>60); Globulin 2.6 g/dL (1.7-4.1); Glucose 102 mg/dL (80-110); HEMOLYSIS < 15 (0-50); Potassium 4.4 mmol/L (3.4-5.1); Sodium 137 mmol/L (137-145); Total Protein 6.5 g/dL (6.3-8.2)
== END ==
PROVIDERS: PCP Family Medicine; Referring Provider Internal Medicine Hematology & Oncology; Visit Provider Internal Medicine Hematology & Oncology
DX: C50.811 Malignant neoplasm of overlapping sites of right female breast (principal); Z17.0 Estrogen receptor positive status [ER+]
CPT/HCPCS: 36415; 80053; 85025

== ENCOUNTER → 2023-12-14 12:29 | Outpatient (CLI) | payer MEDICARE, SELFPAY ==
--- NOTE | 2023-12-14 12:30 | DI.MG.S_ITS ---
BILATERAL DIGITAL SCREENING MAMMOGRAM 3D/2D WITH CAD: 12/14/2023 CLINICAL: Routine screening. Personal history of right breast cancer. Comparison is made to exams dated: 12/11/2022 mammogram, 10/28/2021 mammogram, and 10/22/2020 mammogram - [facility]. Both breasts are heterogeneously dense, which may obscure small masses (category c / 51-75% glandular tissue). Current study was also evaluated with a Computer Aided Detection (CAD) system. There are benign post operative findings in the right breast. No significant masses, calcifications, or other findings are seen in either breast. There has been no significant interval change. IMPRESSION: BENIGN There is no mammographic evidence of malignancy. A 1 year screening mammogram is recommended. This exam was interpreted at Station ID: [id number]. NOTE: For mammograms, a report in lay terms will be sent to the patient. Approximately 15% of breast malignancies will not be visualized mammographically. In the management of a palpable breast mass, a negative mammogram must not discourage biopsy of a clinically suspicious lesion. Electronically Signed By: Bina la/fabian:12/14/2023 13:47:08 copy to: Veda Amaral M.D., [facility] [employer], ph: [phone], fax: [phone] letter sent: Normal Exam ACR BI-RADS Category 2: Benign Finding(s) 3342V
== END ==
LOC: MAMMO 12:29
PROVIDERS: PCP Family Medicine; Referring Provider Internal Medicine Hematology & Oncology; Visit Provider Internal Medicine Hematology & Oncology
DX: Z12.31 Encounter for screening mammogram for malignant neoplasm of breast (principal); Z85.3 Personal history of malignant neoplasm of breast; R92.333 Mammographic heterogeneous density, bilateral breasts
CPT/HCPCS: 77063; 77067

== ENCOUNTER → 2024-10-19 06:54 | Outpatient (CLI) | payer MEDICARE, SELFPAY ==
--- NOTE | 2024-10-19 06:56 | DI.US.S_ITS ---
PROCEDURE: US PERIPH VENOUS LOW EXTREM LT INDICATIONS: DVT TECHNIQUE: Real-time imaging, as well as color and pulse Doppler interrogation, were performed of the lower extremity deep veins from the inguinal ligament to the popliteal fossa, with documentation of the visualized calf veins. Twenty images COMPARISON: None. FINDINGS: The common femoral, femoral, popliteal, and the visualized calf veins are normally compressible, and free of intraluminal thrombus. Color and pulse Doppler demonstrate normal phasic intraluminal flow. There is normal augmentation response to distal compression maneuver. IMPRESSION: No findings of lower extremity deep venous thrombosis left lower extremity. Dictated by: Doroteo Bernabe M.D. on 10/19/2024 at 9:29 Approved by: Doroteo Bernabe M.D. on 10/19/2024 at 9:30
== END ==
PROVIDERS: PCP Family Medicine; Referring Provider Family Medicine; Visit Provider Family Medicine
DX: R60.0 Localized edema (principal)
CPT/HCPCS: 93971